=== PATIENT | female | born 1945 | race Hispanic/Latino ===

== ENCOUNTER 2021-05-31 14:11 | Emergency (ER) | payer MEDICARE, OTHER ==
[~2021-05-31] VITALS: Ht 160 cm; Wt 88.5 kg
[~2021-05-31 14:11] MED LIST: AMARYL4 MG PO; B/P MED; CLARITIN-D 241 EACH PO; GLIMEPIRIDE2 MG PO; GLUCOPHAGE500 MG PO; IRBESARTAN150 MG PO; JANUVIA100 MG PO; METFORMIN HCL500 M2 PO; MILK THISTLE175 M2 PO; OMEPRAZOLE40 MG PO; OXYBUTYNIN CHLOR5 MG PO; RANITIDINE HCL300 MG PO; TYLENOL EXTRA500 MG PO; VYTORIN; VYTORIN 10-201 EACH PO
== END 2021-05-31 15:40 | disposition home or self-care (01) ==
LOC: ER 14:31
DX: S40.012A Contusion of left shoulder, initial encounter (principal); S50.12XA Contusion of left forearm, initial encounter; S80.01XA Contusion of right knee, initial encounter; W01.0XXA Fall on same level from slipping, tripping and stumbling without subsequent striking against object, initial encounter; Y93.01 Activity, walking, marching and hiking; Y92.89 Other specified places as the place of occurrence of the external cause; I10 Essential (primary) hypertension; E11.9 Type 2 diabetes mellitus without complications; E78.5 Hyperlipidemia, unspecified
CPT/HCPCS: 99283

== ENCOUNTER 2023-12-01 15:52 | Inpatient (IN) | payer MEDICARE ==
[~2023-12-01] VITALS: Ht 162.6 cm; Wt 70.3 kg
[2023-12-01] VITALS (7 sets, daily range): BP systolic 121–153; BP diastolic 71–80; PULSE 98–109; RESP 16–18; TEMP 97.8–98.6; O2SAT 98–100
[~2023-12-01 15:52] MED LIST changes: +AZITHROMYCIN250 MG PO; +CIPRO500 MG PO; +FAMOTIDINE20 MG PO; +LOSARTAN POTASS25 MG PO; +MEDROL4 M2 PO; +METHOCARBAMOL750 MG PO; +TIMOPTIC 0.5%1 EACH OU; +ULTRAM 50MG50 MG PO; +[UNRECOGNIZED DRUG - OTHER] OP
[2023-12-01 16:50] LABS: BASOPHILS # (AUTO) 0.1 (0.0-0.1); BASOPHILS % 0.5 % (0.0-1.0); EOSINOPHILS # (AUTO) 0.2 (0.0-0.4); EOSINOPHILS % 2.6 % (0.0-6.0); HEMATOCRIT 25.3 % (34.2-44.1); HEMOGLOBIN 7.4 g/dL (12.0-16.0); LYMPHOCYTES # (AUTO) 1.6 (1.0-3.2); LYMPHOCYTES % 17.2 % (18.0-39.1); MEAN CORPUSCULAR HEMOGLOBIN 24.7 pg (28-32); MEAN CORPUSCULAR HGB CONC 29.2 g/dL (31-35); MEAN CORPUSCULAR VOLUME 84.6 fL (81-99); MONOCYTES # (AUTO) 0.7 (0.2-0.8); MONOCYTES % 7.2 % (4.4-11.3); NEUTROPHILS # (AUTO) 6.6 (2.1-6.9); NEUTROPHILS % 71.6 % (38.7-80.0); PLATELET COUNT 342 x10e3/uL (140-360); RED BLOOD COUNT 2.99 x10e6/uL (3.6-5.1); RED CELL DISTRIBUTION WIDTH 16.8 % (11.7-14.4); WHITE BLOOD COUNT 9.19 x10e3/uL (4.8-10.8)
[2023-12-01 17:11] LABS: ALBUMIN 3.4 g/dL (3.5-5.0); ALBUMIN/GLOBULIN RATIO 0.7 (0.8-2.0); BILIRUBIN,TOTAL 0.3 mg/dL (0.2-1.2); CALCIUM 9.6 mg/dL (8.4-10.2); CREATININE, SERUM 1.82 mg/dL (0.57-1.11); TOTAL PROTEIN 8.4 g/dL (6.5-8.1)
[2023-12-01] MEDS ORDERED: EZETIMIBE-SIMV1 EAC1 PO (23:21)
[2023-12-01] MEDS ORDERED: DYMISTA NASAL S23 GM INH (23:21)
[2023-12-01] MEDS ORDERED: LOSARTAN POTAS100 MG PO (23:21)
[2023-12-01] MEDS ORDERED: METFORMIN HCL1000 MG PO (23:21)
[2023-12-01] MEDS ORDERED: LATANOPROST2.5 ML OP (23:23)
[2023-12-01] MEDS ORDERED: TIMOPTIC 0.5%1 EACH OU (23:25)
[2023-12-02] VITALS (9 sets, daily range): BP systolic 120–141; BP diastolic 64–74; PULSE 75–99; RESP 16–20; TEMP 97.6–98.7; O2SAT 95–100
[2023-12-02] MEDS ORDERED: POLYETHYLENE GLYCOL 3350 17 GM PACK PO PRN (01:45)
[2023-12-02] MEDS ORDERED: GUAIFENESIN/DEXTROMETHORPHAN LIQD 5 ML UDC PO PRN (01:45)
[2023-12-02] MEDS ORDERED: ONDANSETRON HCL INJ 2MG/ML 2ML 2 MG/ML VIAL IV PRN (01:45)
[2023-12-02] MEDS ORDERED: ACETAMINOPHEN 325 MG TAB PO PRN (01:45)
[2023-12-02] MEDS ORDERED: MELATONIN 3 MG TAB PO PRN (01:45)
[2023-12-02] MEDS ORDERED: MAGNESIUM/ALUMINUM/SIMETHICONE 30 ML UDC PO PRN (01:45)
[2023-12-02] MEDS ORDERED: HYDRALAZINE HCL 20 MG/ML VIAL IV PRN (01:45)
[2023-12-02 05:22] LABS: BASOPHILS # (AUTO) 0.1 (0.0-0.1); BASOPHILS % 0.7 % (0.0-1.0); EOSINOPHILS # (AUTO) 0.2 (0.0-0.4); EOSINOPHILS % 2.5 % (0.0-6.0); HEMATOCRIT 26.3 % (34.2-44.1); LYMPHOCYTES # (AUTO) 1.9 (1.0-3.2); LYMPHOCYTES % 21.4 % (18.0-39.1); MEAN CORPUSCULAR HEMOGLOBIN 25.6 pg (28-32); MEAN CORPUSCULAR HGB CONC 30.4 g/dL (31-35); MONOCYTES # (AUTO) 0.7 (0.2-0.8); NEUTROPHILS # (AUTO) 5.8 (2.1-6.9); NEUTROPHILS % 66.5 % (38.7-80.0); PLATELET COUNT 290 x10e3/uL (140-360); RED BLOOD COUNT 3.13 x10e6/uL (3.6-5.1); RED CELL DISTRIBUTION WIDTH 16.3 % (11.7-14.4); WHITE BLOOD COUNT 8.72 x10e3/uL (4.8-10.8)
[2023-12-02 05:42] LABS: ANION GAP 14.1 mmol/L (8-16); CALCIUM 8.8 mg/dL (8.4-10.2); CREATININE, SERUM 1.59 mg/dL (0.57-1.11); POTASSIUM 4.1 mmol/L (3.5-5.1)
[2023-12-02 06:17] LABS: FERRITIN 947.71 ng/mL (4.63-204.00)
[2023-12-02] MEDS: MULTIVITAMINS/MINERALS TAB PO SCH (09:05)
[2023-12-02] MEDS: SITAGLIPTIN 100 MG TAB PO SCH (09:06)
[2023-12-02] MEDS: FLUTICASONE PROPIONATE NASAL SPRAY NS SCH (09:06)
[2023-12-02] MEDS: LATANOPROST(OPTH) 2.5 ML BTL OU SCH (09:08)
[2023-12-02] MEDS: TIMOLOL MALEATE 0.5% OPTH DRP 5 ML BTL OU SCH (09:09)
[2023-12-02] MEDS ORDERED: DEXTROSE 50% SYRINGE 50 ML IV PRN (11:30)
[2023-12-02] MEDS: INSULIN REGULAR, HUMAN 100 UNIT/1 ML SQ SCH (11:46)
[2023-12-02] MEDS: SODIUM CHLORIDE 0.9% 250ML 250 ML IV ONE (16:42)
[2023-12-02] MEDS: SIMVASTATIN 20 MG TAB PO SCH (20:35)
[2023-12-02 23:30] LABS: CREATININE,URINE RANDOM 113.52 mg/dL (47-110); TOTAL PROTEIN, URINE 24.8 mg/dL (1-14)
[2023-12-03 02:41] LABS: FOLATE 11.6 ng/mL (7.0-15.4)
[2023-12-03 03:55] VITALS: BP 132/73; PULSE 97; RESP 18; TEMP 99; O2SAT 100
[2023-12-03 03:57] VITALS: BP 154/85
[2023-12-03 03:59] VITALS: BP 152/89
[2023-12-03 06:26] LABS: ANION GAP 14.1 mmol/L (8-16); CALCIUM 9.4 mg/dL (8.4-10.2); CREATININE, SERUM 1.62 mg/dL (0.57-1.11); POTASSIUM 4.1 mmol/L (3.5-5.1)
[2023-12-03] MEDS ORDERED: DOCUSATE SODIU100 M1 PO (07:38)
[2023-12-03] MEDS ORDERED: FERROUS SULFAT325 MG PO (07:38)
[2023-12-03] MEDS ORDERED: GLUCOTROL XL2.5 MG PO (07:38)
[2023-12-03 08:16] VITALS: BP 146/81; PULSE 89; RESP 17; TEMP 98.2; O2SAT 99
[2023-12-03 08:28] VITALS: BP 146/81; PULSE 89; RESP 17; TEMP 98.2; O2SAT 99
[2023-12-03] MEDS: SODIUM FERRIC GLUCONATE COMPLX 125 MG in SODIUM CHLORIDE 0.9% 100 ML IV SCH (09:07)
[2023-12-03 12:00] VITALS: BP 122/68; PULSE 86; RESP 17; TEMP 98; O2SAT 99
[2023-12-03] MEDS ORDERED: LATANOPROST(OPTH) 2.5 ML BTL OU SCH (21:00)
[2023-12-07 17:29] LABS: SPE ALPHA 1 GLOBULIN 0.4
[2023-12-07 17:30] LABS: GLOBULIN TOTAL 4.6; KAPPA LIGHT CHAINS 74.5; LAMBDA LIGHT CHAINS 83.4; SPE ALPHA 2 GLOBULIN 1.2; SPE GAMMA GLOBULIN 1.9; SPE TOTAL PROTEIN 7.9
[2023-12-07 17:31] LABS: KAPPA/LAMBDA RATIO 0.89
[2023-12-07 17:32] LABS: A/G RATIO 0.7
[2023-12-08 13:14] LABS: ENDOMYSIAL ANTIBODIES, IGA Negative (Negative)
[2023-12-08 13:14] LABS: ALBUMIN,URINE PEP 39.1 % (.); ALPHA 1 GLOBULIN URINE PEP 11.3 % (.); ALPHA 2 GLOBULIN URINE PEP 11.3 % (.); BETA GLOBULIN URINE PEP 18.2 % (.); GAMMA GLOBULIN URINE PEP 20.2 % (.); M-SPIKE % Not Observed % (Not Observed); PROTEIN URINE PEP 28.9 mg/dL (Not Estab.)
[2023-12-08 13:46] LABS: IMMUNOGLOBULIN A 410 mg/dL (64-422); TISSUE TRANSGLUTAMINASE IGA AB <2 U/mL (0-3)
== END 2023-12-03 14:30 | disposition home or self-care (01) | DRG 812 ==
LOC: ER 16:00 → ERHOLD 17:33 → MED/SURG2 18:22 → OBSVTOIN 12-02 12:03
PROVIDERS: ADMIT Internal Medicine Critical Care Medicine; ATTEND Internal Medicine Critical Care Medicine
PROC: 30233N1 Transfusion of Nonautologous Red Blood Cells into Peripheral Vein, Percutaneous Approach (ICD-10-PCS; principal; 2023-12-01)
DX: D50.9 Iron deficiency anemia, unspecified (principal); N17.9 Acute kidney failure, unspecified; E86.0 Dehydration; E11.22 Type 2 diabetes mellitus with diabetic chronic kidney disease; I12.9 Hypertensive chronic kidney disease with stage 1 through stage 4 chronic kidney disease, or unspecified chronic kidney disease; N18.31 Chronic kidney disease, stage 3a; Z79.84 Long term (current) use of oral hypoglycemic drugs; D63.8 Anemia in other chronic diseases classified elsewhere; I95.1 Orthostatic hypotension; E78.5 Hyperlipidemia, unspecified; R26.81 Unsteadiness on feet; R00.0 Tachycardia, unspecified; R42 Dizziness and giddiness; K59.00 Constipation, unspecified; R19.7 Diarrhea, unspecified; K63.5 Polyp of colon; R29.6 Repeated falls; Z91.81 History of falling; Z85.528 Personal history of other malignant neoplasm of kidney; Z90.5 Acquired absence of kidney; Z79.899 Other long term (current) drug therapy
CPT/HCPCS: 36415; 70450; 76770; 80048; 80053; 82570; 82607; 82728; 82746; 82784; 82948; 83516; 83540; 84156; 84165; 84166; 84466; 85025; 86256; 86850; 86900; 86920; 94799; 99252; 99284; G0378; J2916; J7050; P9016